=== PATIENT | male | born 1950 | race Caucasian/White ===

== ENCOUNTER 2019-12-28 06:59 | Outpatient (CLI) | payer OTHER, MEDICARE ==
--- NOTE | 2019-12-28 16:18 | EKG ---
Test Reason : Blood Pressure : / mmHG Vent. Rate : 055 BPM Atrial Rate : 055 BPM P-R Int : 162 ms QRS Dur : 096 ms QT Int : 450 ms P-R-T Axes : 064 063 052 degrees QTc Int : 430 ms Sinus bradycardia RSR' or QR pattern in V1 suggests right ventricular conduction delay Borderline ECG Confirmed by NICHOLE MUIR ([id number]) on 12/28/2019 4:17:59 PM Referred By: ANGELLA Confirmed By:NICHOLE MUIR
== END 2019-12-28 07:00 | disposition home or self-care (01) ==
LOC: LABBT 06:59
PROVIDERS: ATTEND Thoracic Surgery (Cardiothoracic Vascular Surgery)
DX: Z01.810 Encounter for preprocedural cardiovascular examination (principal); K44.9 Diaphragmatic hernia without obstruction or gangrene
CPT/HCPCS: 93005; 93010

== ENCOUNTER 2020-01-17 14:37 | Outpatient (CLI) | payer OTHER, MEDICARE ==
--- NOTE | 2020-01-17 15:38 | RAD ---
2 view chest: [01/17/2020] Comparison:01/04/2020 HISTORY: Hiatal hernia FINDINGS: There is no pneumothorax. Left lung appears clear. No left-sided pleural effusion. There is a new moderate-sized right pleural effusion with obscuration of the right heart border and nonspecific associated increased parenchymal density in the right lung base. IMPRESSION: Right basilar pleural and parenchymal opacity as detailed above.
== END 2020-01-17 14:38 | disposition home or self-care (01) ==
LOC: RAD 14:37
PROVIDERS: ATTEND Thoracic Surgery (Cardiothoracic Vascular Surgery)
DX: K44.9 Diaphragmatic hernia without obstruction or gangrene (principal); J90 Pleural effusion, not elsewhere classified; J98.4 Other disorders of lung
CPT/HCPCS: 71046